=== PATIENT | male | born 1960 | race Caucasian/White ===

== ENCOUNTER 2022-10-28 20:16 | Emergency (ER) | payer MEDICARE, MEDICAID ==
[~2022-10-28] VITALS: Ht 170.2 cm; Wt 92.0 kg
[2022-10-28 20:18] VITALS: O2SAT 96
[2022-10-28 21:08] LABS: BASOPHILS % 0.8 % (0.0-2.0); EOSINOPHILS % 2.4 % (0.0-5.0); HEMATOCRIT. 45.8 % (42.0-52.0); HEMOGLOBIN. 15.9 g/dL (14.0-18.0); LYMPHOCYTES % 33.8 % (20.0-50.0); MEAN CORPUSCULAR VOLUME 86.5 fL (80.0-94.0); MEAN PLATELET VOLUME 8.8 fl (7.4-10.4); MONOCYTES % 10.2 % (2.0-8.0); NEUTROPHILS % 52.8 % (40.0-76.0); PLATELET 209 x1000/uL (130-400); RED CELL DISTRIBUTION WIDTH 14.7 % (11.6-14.6)
[2022-10-28 21:36] LABS: CHLORIDE 105 mEq/L (98-107)
[2022-10-29] MEDS ORDERED: POLY15DR31 EACHEYE (00:56)
[2022-10-29] MEDS ORDERED: VALA100044 MT (00:56)
[2022-10-29] MEDS ORDERED: P20 MT (00:56)
[2022-10-29 01:06] VITALS: BP 136/70; PULSE 68; RESP 12; TEMP 98
== END 2022-10-29 01:39 | disposition home or self-care (01) ==
LOC: ER 20:16
DX: G51.0 Bell's palsy (principal); R51.9 Headache, unspecified; E78.00 Pure hypercholesterolemia, unspecified; Z90.49 Acquired absence of other specified parts of digestive tract
CPT/HCPCS: 36415; 71045; 80053; 84484; 85025; 99285